=== PATIENT | female | born 1965 | race Caucasian/White ===

== ENCOUNTER 2021-03-05 18:42 | Emergency (ER) | payer SELFPAY ==
[~2021-03-05] VITALS: Ht 175.3 cm; Wt 93.5 kg
--- NOTE | 2021-03-05 19:14 | PHYS DOC ---
General Adult EDM: Chief Complaint: MULTIPLE COMPLAINTS HPI: HPI: ".. I feel like I got the flu.. been having nausea .. vomiting.. ' Patient is a 55 year old female who presents with above hx and complaints nausea ,vomiting, myalgia, arthralgia, malaise, fever and chills. Patient has not gotten flu vaccination this season. No recent travel. No specific ill contacts. Has not gotten Covid vaccination. Patient reports complaints of symptoms for the past 2 weeks. No history of bad food intake. No specific ill contacts. Review of Systems: Review of Systems: Constitutional: Subjective complaint fever or chills Eyes: Denies change in visual acuity HENT: Denies nasal congestion or sore throat Respiratory: Denies cough or shortness of breath Cardiovascular: Denies chest pain or edema GI: Planes of abdominal pain, nausea, vomiting,. Denies bloody stools or diarrhea : Denies dysuria Musculoskeletal: Complains of generalized myalgia and arthralgia Integument: Denies rash Neurologic: Denies headache, focal weakness or sensory changes Endocrine: Denies polyuria or polydipsia Lymphatic: Denies swollen glands Psychiatric: Denies depression or anxiety Family History: Family History: Noncontributory to presentation Current Medications: Current Meds: See nursing for home meds Allergies: Allergies: No known drug allergies Physical Exam: PE: Constitutional: Moderate acute distress, non-toxic appearance. [] HENT: Normocephalic, atraumatic, bilateral external ears normal, oropharynx moist, no oral exudates, nose normal. [] Eyes: PERRLA, EOMI, conjunctiva normal, no discharge. [] Neck: Normal range of motion, no tenderness, supple, no stridor. [] Cardiovascular:Heart rate regular rhythm, no murmur [] Lungs & Thorax: Bilateral breath sounds equal apex with few scattered wheezes auscultation [] Abdomen: Bowel sounds hyperactive, soft, mild generalized tenderness, no masses, no pulsatile masses. No areas of rebound Skin: Warm, dry, no erythema, no rash. [] Back: No tenderness, no CVA tenderness. [] Extremities: No tenderness, no cyanosis, no clubbing, ROM intact, no edema. No psoas. Neurologic: Alert and oriented X 3, normal motor function, normal sensory function, no focal deficits noted. [] Psychologic: Affect anxious, judgement normal, mood normal. [] EKG: EKG: My interpretation EKG shows sinus rhythm at 76 bpm. Some nonspecific T wave changes. But no findings of acute STEMI with contralateral changes. [] Radiology/Procedures: Radiology/Procedures: [][address] [id number] IMAGING REPORT Signed PATIENT: YU SEE ACCOUNT: [id number] : 1965 LOCATION: ER AGE: 55 SEX: F EXAM STATUS: REG ER ORD. PHYSICIAN: NICHOLE HDEZ MD REASON: Chest and abdomen pain, nausea and vomiting PROCEDURE: ACUTE ABDOMEN SERIES EXAM: Frontal view of the chest, AP views of the abdomen in upright and supine positions. CLINICAL INDICATION: Reason: Chest and abdomen pain, nausea and vomiting / Spl. Instructions: / History: COMPARISON: None. FINDINGS and IMPRESSION: The heart is not enlarged. Mediastinal and hilar contours are normal. Linear and patchy opacities left lung base likely atelectasis. Consolidation. Elevation left hemidiaphragm. No pleural effusion or pneumothorax. Suspected hiatal hernia or left diaphragmatic hernia, can be further assessed by CT if clinically indicated. No abnormal small or large bowel dilatation. Moderate colonic stool content. No abnormal soft tissue mass effect. No suspicious calcifications are seen. No free intraperitoneal gas. Linear densities in the pelvis, possibly Essure devices or leads. Electronically signed by: Wes Hollis MD (03/05/2021 10:48 PM) [facility] DICTATED AND SIGNED BY: WES HOLLIS MD DATE: 03/05/212245 CC: NICHOLE HDEZ MD; PCP,NO ~MTH0 0 Heart Score: C/O Chest Pain: N/A HEART Score for Chest Pain: HEART Score for Chest Pain Response (Comments) Value History Moderately Suspicious 1 ECG Nonspecific Repolarizatio 1 Age >45 - < 65 1 Risk Factors 1 or 2 Risk Factors 1 Troponin < Normal Limit 0 Total 4 Risk Factors: Risk Factors: DM, Current or recent (<one month) smoker, HTN, HLP, family history of CAD, obesity. Risk Scores: Score 0 - 3: 2.5% MACE over next 6 weeks - Discharge Home Score 4 - 6: 20.3% MACE over next 6 weeks - Admit for Clinical Observation Score 7 - 10: 72.7% MACE over next 6 weeks - Early Invasive Strategies Course & Med Decision Making: Course & Med Decision Making Pertinent Labs and Imaging studies reviewed. (See chart for details) Patient stay on a clear fluid diet only for the next 48 hours. No solids. No milk products. Push fluids. Tylenol and ibuprofen for discomfort. Take Zofran 8 mg up to 4 times a day for nausea and vomiting. Follow-up primary care. Return if any concerns. Follow-up pending Covid test. Impression: 1. Acute gastroenteritis 2. Dehydration-160 ketones in urine [] Dragon Disclaimer: Dragon Disclaimer: This electronic medical record was generated, in whole or in part, using a voice recognition dictation system. Departure Departure: Referrals: PCP,NO (PCP) Scripts Ondansetron Hcl (ZOFRAN) 4 Mg Tablet 8 MG PO QIDPRN for nv, #30 TAB Prov: NICHOLE HDEZ MD 03/06/21 Holli Disclaimer This chart was dictated in whole or in part using Voice Recognition software in a busy, high-work load, and often noisy Emergency Department environment. It may contain unintended and wholly unrecognized errors or omissions. NICHOLE HDEZ MD Mar 05, 2021 19:14
[2021-03-05] MEDS ORDERED: ONDANSETRON PF 4 MG/2 ML VIAL. IVP ONE (19:15)
[2021-03-05] MEDS ORDERED: FAMOTIDINE 20 MG/2 ML VIAL IVP ONE (19:15)
[2021-03-05] MEDS ORDERED: IV RINGERS SOLUTION,LACTATED 1,000 ML IV SCH (19:15)
[2021-03-05 20:15] LABS: BASO % 0 % (0-3); EOS % 0 % (0-3); HEMATOCRIT 41.7 % (36.0-47.0); HEMOGLOBIN 14.7 g/dL (12.0-15.5); LYMPH # 0.7 x10^3/uL (1.0-4.8); LYMPH % 10 % (24-48); MEAN CORPUSCULAR HEMOGLOBIN 33 pg (25-35); MEAN CORPUSCULAR HGB CONC 35 g/dL (31-37); MEAN CORPUSCULAR VOLUME 93 fL (79-100); MONO # 0.2 x10^3/uL (0.0-1.1); MONO % 3 % (0-9); NEUT # 5.9 x10^3uL (1.8-7.7); NEUT % 86 % (31-73); PLATELET COUNT 296 x10^3/uL (140-400); RED BLOOD COUNT 4.51 x10^6/uL (3.50-5.40); RED CELL DISTRIBUTION WIDTH 13.8 % (11.5-14.5); WHITE BLOOD COUNT 6.9 x10^3/uL (4.0-11.0)
[2021-03-05 20:26] LABS: CALCIUM 9.4 mg/dL (8.5-10.1); CREATININE 0.8 mg/dL (0.6-1.0); GFR 74.7
[2021-03-05 20:32] LABS: ALBUMIN 4.1 g/dL (3.4-5.0); DIRECT BILIRUBIN 0.2 mg/dL (0.0-0.2); TOTAL BILIRUBIN 0.5 mg/dL (0.2-1.0)
[2021-03-05 20:38] LABS: INFLUENZA A PATIENT NEGATIVE (NEGATIVE); INFLUENZA B PATIENT NEGATIVE (NEGATIVE)
[2021-03-05 22:13] LABS: AMPHETAMINE/METHAMPHETAMINE NEG (NEG); BARBITURATES NEG (NEG); BENZODIAZEPINES NEG (NEG); CANNABINOIDS NEG (NEG); COCAINE NEG (NEG); METHADONE NEG (NEG); OPIATES NEG (NEG); PHENCYCLIDINE NEG (NEG)
[2021-03-05 22:16] LABS: BILIRUBIN,URINE SMALL (NEG); CLARITY,URINE CLEAR; COLOR,URINE YELLOW; GLUCOSE,URINE NEG (NEG); NITRITE,URINE NEG (NEG); RBC,URINE OCC /HPF (0-2); WBC,URINE 0 /HPF (0-4)
[2021-03-05 22:17] LABS: BACTERIA,URINE 0 /HPF (0-FEW); SQUAMOUS EPITHELIAL CELL,UR OCC /LPF
[2021-03-05] MEDS ORDERED: HYDROcodon/IBUPROFEN 7.5/200MG 1 TAB TABLET PO ONE (22:30)
--- NOTE | 2021-03-05 22:50 | RAD ---
EXAM: Frontal view of the chest, AP views of the abdomen in upright and supine positions. CLINICAL INDICATION: Reason: Chest and abdomen pain, nausea and vomiting / Spl. Instructions: / Hist ory: COMPARISON: None. FINDINGS and IMPRESSION: The heart is not enlarged. Mediastinal and hilar contours are normal. Linear and patchy opacities lef t lung base likely atelectasis. Consolidation. Elevation left hemidiaphragm. No pleural effusion or pneumothorax. Suspected hiatal hernia or left diaphragmatic hernia, can be further assessed by CT if clinically indicated. No abnormal small or large bowel dilatation. Moderate colonic stool content. No abnormal soft tissu e mass effect. No suspicious calcifications are seen. No free intraperitoneal gas. Linear densities in the pelvis, possibly Essure devices or leads. Electronically signed by: Wes Hollis MD (03/05/2021 10:48 PM) ELLY
[2021-03-05] MEDS ORDERED: ACETAMINOPHEN 500 MG TABLET PO ONE (23:00)
[2021-03-05] MEDS: KETOROLAC 30 MG/ML VIAL. IVP ONE ×2 (23:00→23:01)
[2021-03-05] MEDS ORDERED: KETOROLAC 30 MG/ML VIAL. IM ONE (23:15)
[2021-03-06] MEDS ORDERED: ONDA4TAB7 PO (01:55)
[2021-03-06 02:00] VITALS: BP 145/102
--- NOTE | 2021-03-06 02:45 | EKG ---
[address] [address] Test Date: 2021-03-05 Test Time: 19:48:18 Pat Name: YU SEE Department: Room: Gender: F Financial Engineer: : 1965 Requested By: NICHOLE HDEZ Order Number: [id number] Reading MD: Wilbert Billy MD Measurements Intervals [place] Rate: 76 P: 83 ND: 180 QRS: 8 QRSD: 86 T: 69 QT: 404 QTc: 454 Interpretive Statements SINUS RHYTHM Electronically Signed On 03-10-2021 14:20:08 [employer] by Wilbert Billy MD
== END 2021-03-06 02:01 | disposition home or self-care (01) ==
LOC: ER 18:42
DX: K52.9 Noninfective gastroenteritis and colitis, unspecified (principal); E86.0 Dehydration; R82.4 Acetonuria; Z20.822 Contact with and (suspected) exposure to COVID-19
CPT/HCPCS: 74022; 80048; 80076; 80307; 81001; 82150; 82550; 83690; 84484; 85025; 85610; 85730; 87426; 87804; 93005; 96361; 96372; 96374; 96375; 99285; C9803; J1885; J2405; J3490; J7120; U0003

== ENCOUNTER 2021-04-03 09:42 | Emergency (ER) | payer SELFPAY ==
[~2021-04-03] VITALS: Ht 175.3 cm; Wt 90.0 kg
[~2021-04-03 09:42] MED LIST: ONDA4TAB7 PO
[2021-04-03 09:58] VITALS: BP 165/90
[2021-04-03 10:21] LABS: BACTERIA,URINE MANY /HPF (0-FEW); CLARITY,URINE CLOUDY; COLOR,URINE ORANGE; SQUAMOUS EPITHELIAL CELL,UR FEW /LPF; WBC,URINE 20-40 /HPF (0-4)
[2021-04-03] MEDS ORDERED: NITR100C PO (10:37)
--- NOTE | 2021-04-03 10:37 | PHYS DOC ---
Past History Past Medical History: UTI (JED CHAIDEZ) Past Surgical History: No Surgical History (JED CHAIDEZ) Alcohol Use: None (JED CHAIDEZ) General Adult EDM: Chief Complaint: PAIN ON URINATION HPI: HPI: Patient is a 56 year old female who presents with dysuria for the past 3 to 4 days. Patient states that she frequently gets UTIs, and her current symptoms are similar. She did take Azo [id number] to attempt to relieve her symptoms without success. Patient denies fever, chills, hematuria, flank pain, abdominal pain, NVD. (JED CHAIDEZ) Review of Systems: Review of Systems: Constitutional: See HPI Eyes: Denies change in visual acuity, visual field deficits or discharge HENT: Denies ear pain, nasal congestion or sore throat Respiratory: Denies cough or shortness of breath Cardiovascular: Denies chest pain, palpitations or edema GI: See HPI : See HPI Musculoskeletal: Denies back pain or joint pain Integument: Denies rash or other skin lesion Neurologic: Denies headache, focal weakness or sensory changes (JED CHAIDEZ) Allergies: Allergies: Allergies Coded Allergies Type Severity Reaction Last Updated Verified No Known Drug Allergies 03/05/21 No (JED CHAIDEZ) Physical Exam: PE: Constitutional: Well developed, well nourished, no acute distress, non-toxic appearance. HENT: Normocephalic, atraumatic, bilateral external ears normal, nose normal. Eyes: EOMI, conjunctiva normal, no discharge. Neck: Normal range of motion, no stridor. Skin: Warm, dry, no erythema, no rash. Back: No tenderness, no CVA tenderness. Extremities: No tenderness, no cyanosis, no clubbing, ROM intact, no edema. Neurologic: Alert and oriented x4, steady and symmetrical gait, no focal deficits noted. (JED CHAIDEZ) Current Patient Data: Labs: Laboratory Tests Test 04/03/21 09:55 Urine Collection Type Unknown Urine Color [place] Urine Clarity Cloudy Urine pH Urine Specific [place] Urine Protein (NEG-TRACE) Urine Glucose (UA) mg/dL (NEG) Urine Ketones (Stick) mg/dL (NEG) Urine Blood (NEG) Urine Nitrite (NEG) Urine Bilirubin (NEG) Urine Urobilinogen Dipstick mg/dL (0.2 mg/dL) Urine Leukocyte Esterase (NEG) Urine RBC 3-5 /HPF (0-2) Urine WBC 20-40 /HPF (0-4) Urine Squamous Epithelial Cells Few /LPF Urine Transitional Epithelial Cells Few /LPF Urine Bacteria Many /HPF (0-FEW) Urine Mucus Slight /LPF Vital Signs: Vital Signs Date Time Temp Pulse Resp B/P (MAP) Pulse Ox O2 Delivery O2 Flow Rate FiO2 04/03/21 09:58 98.2 69 16 165/90 (115) 99 (JED CHAIDEZ) Heart Score: C/O Chest Pain: No (JED CHAIDEZ) Course & Med Decision Making: Course & Med Decision Making Pertinent Labs and Imaging studies reviewed. (See chart for details) Patient is a 56-year-old female with dysuria for the past 3-4 days and history of frequent UTIs. Patient states she has taken Bactrim in the past, but the UTIs tend to recur very quickly after finishing antibiotic course. She reports she has had Macrobid and one other antibiotic that have treated her UTIs more successfully. Work-up today will include urinalysis. Patient will be discharged home with a prescription for Macrobid and return precautions. Patient understands and is agreeable to discharge plan. (JED CHAIDEZ) Course & Med Decision Making I was the Attending physician on the above date of service of this patient. This patient was evaluated, examined, treated, and dispositioned from the emergency department by the mid-level practitioner. Although I was working at the time , no assistance was requested. Electronically signed, Destin Kay DO (DESTIN KAY DO) Holli Disclaimer: Holli Disclaimer: This electronic medical record was generated, in whole or in part, using a voice recognition dictation system. (JED CHAIDEZ) Departure Departure: Impression: Primary Impression: Urinary tract infection Qualified Codes: N30.01 - Acute cystitis with hematuria Additional Impression: Elevated blood pressure reading Disposition: HOME / SELF CARE / HOMELESS Condition: STABLE Referrals: PCP,NO (PCP) Patient Instructions: Urinary Tract Infection, [id number] Additional Instructions: Take antibiotics as prescribed. If you experience pain or discomfort, you may take over the counter ibuprofen (Advil, Motrin) or acetaminophen (Tylenol). Please return for worsening symptoms or development of new ones, especially fever or inability to urinate. Follow up with your primary care doctor for recurrent symptoms and your elevated blood pressure reading in the department. Scripts Nitrofurantoin Macrocrystal (NITROFURANTOIN) 100 Mg Capsule 1 CAP PO BID for UTI, #10 CAP Take 1 capsule by mouth twice per day for 5 days. Please take full course of antibiotics. Prov: JED CHAIDEZ 04/03/21 JED CHAIDEZ Apr 03, 2021 10:37 DESTIN KAY DO Apr 05, 2021 19:59
== END 2021-04-03 10:50 | disposition home or self-care (01) ==
LOC: ER 09:42
DX: N30.01 Acute cystitis with hematuria (principal); R03.0 Elevated blood-pressure reading, without diagnosis of hypertension; Z87.440 Personal history of urinary (tract) infections
CPT/HCPCS: 81001; 87086; 87186; 99283

== ENCOUNTER 2021-04-18 13:40 | Emergency (ER) | payer OTHER ==
[~2021-04-18] VITALS: Ht 175.3 cm; Wt 90.0 kg
[2021-04-18 13:40] VITALS: BP 154/87
[~2021-04-18 13:40] MED LIST changes: +NITR100C PO
[2021-04-18 14:16] LABS: BACTERIA,URINE MOD /HPF (0-FEW); BILIRUBIN,URINE NEG (NEG); CLARITY,URINE HAZY; COLOR,URINE YELLOW; GLUCOSE,URINE NEG (NEG); NITRITE,URINE POS (NEG); RBC,URINE OCC /HPF (0-2); SQUAMOUS EPITHELIAL CELL,UR FEW /LPF; UROBILINOGEN,URINE 0.2 mg/dL (0.2 mg/dL); WBC,URINE 20-40 /HPF (0-4)
[2021-04-18] MEDS ORDERED: CEPH500T PO (14:20)
--- NOTE | 2021-04-18 14:20 | PHYS DOC ---
Past History Past Medical History: UTI Past Surgical History: No Surgical History Alcohol Use: None General Adult EDM: Chief Complaint: PAIN ON URINATION HPI: HPI: 56-year-old female presents with dysuria and increased urinary frequency. The patient had a urinary tract infection on the of last month treated with antibiotics. She got better and her current symptoms started a couple of days ago. She is having some left flank discomfort but no fever at home. She started taking Azo. Patient denies any other symptoms or complaints at this time. Review of Systems: Review of Systems: Constitutional: Denies fever or chills Eyes: Denies change in visual acuity HENT: Denies nasal congestion or sore throat Respiratory: Denies cough or shortness of breath Cardiovascular: Denies chest pain or edema GI: Denies abdominal pain, nausea, vomiting, bloody stools or diarrhea : Dysuria, increased urinary frequency Musculoskeletal: Denies back pain or joint pain Integument: Denies rash Neurologic: Denies headache, focal weakness or sensory changes Endocrine: Denies polyuria or polydipsia Lymphatic: Denies swollen glands Psychiatric: Denies depression or anxiety Allergies: Allergies: Allergies Coded Allergies Type Severity Reaction Last Updated Verified No Known Drug Allergies 03/05/21 No Physical Exam: PE: Constitutional: Well developed, well nourished, no acute distress, non-toxic appearance. [] HENT: Normocephalic, atraumatic, bilateral external ears normal, oropharynx moist, no oral exudates, nose normal. [] Eyes: PERRLA, EOMI, conjunctiva normal, no discharge. [] Neck: Normal range of motion, no tenderness, supple, no stridor. [] Cardiovascular: Heart rate regular rhythm, no murmur [] Lungs & Thorax: Bilateral breath sounds clear to auscultation [] Abdomen: Bowel sounds normal, soft, suprapubic tenderness, no masses, no pulsatile masses. [] Skin: Warm, dry, no erythema, no rash. [] Back: No tenderness, no CVA tenderness. [] Extremities: No tenderness, no cyanosis, no clubbing, ROM intact, no edema. [] Neurologic: Alert and oriented X 3, normal motor function, normal sensory function, no focal deficits noted. [] Psychologic: Affect normal, judgement normal, mood normal. [] Current Patient Data: Vital Signs: Vital Signs Date Time Temp Pulse Resp B/P (MAP) Pulse Ox O2 Delivery O2 Flow Rate FiO2 04/18/21 13:40 97.5 75 16 154/87 (109) 98 Room Air EKG: EKG: [] Radiology/Procedures: Radiology/Procedures: [] Heart Score: C/O Chest Pain: N/A Risk Factors: Risk Factors: DM, Current or recent (<one month) smoker, HTN, HLP, family history of CAD, obesity. Risk Scores: Score 0 - 3: 2.5% MACE over next 6 weeks - Discharge Home Score 4 - 6: 20.3% MACE over next 6 weeks - Admit for Clinical Observation Score 7 - 10: 72.7% MACE over next 6 weeks - Early Invasive Strategies Course & Med Decision Making: Course & Med Decision Making Pertinent Labs and Imaging studies reviewed. (See chart for details) I reviewed the patient's previous urine culture and was significant for E. coli sensitive to everything except Bactrim and tetracycline. She was on Macrobid at that time which should have been effective. Her urine is positive for UTI today. I will treat her with Keflex this time given she has mentioned some flank discomfort. She is stable for discharge at this time. [] Dragon Disclaimer: Draglisa Disclaimer: This electronic medical record was generated, in whole or in part, using a voice recognition dictation system. Departure Departure: Impression: Primary Impression: Urinary tract infection Disposition: HOME / SELF CARE / HOMELESS Condition: STABLE Referrals: PCP,NO (PCP) Patient Instructions: Urinary Tract Infection, [id number] Scripts Cephalexin (CEPHALEXIN) 500 Mg Tablet 1 TAB PO TID for UTI for 5 Days, #15 TAB Prov: LESLIE SUN DO 04/18/21 LESLIE SUN DO Apr 18, 2021 14:20
== END 2021-04-18 14:30 | disposition home or self-care (01) ==
LOC: ER 13:40
DX: N39.0 Urinary tract infection, site not specified (principal); Z87.440 Personal history of urinary (tract) infections
CPT/HCPCS: 81001; 87077; 87086; 87186; 99283